=== PATIENT | male | born 1955 | race Caucasian/White ===

== ENCOUNTER 2019-06-23 07:48 | Inpatient (IN) ==
[2019-06-23] MEDS ORDERED: SOLU-MEDROL IV ONE (08:13)
[2019-06-23] MEDS ORDERED: DUONEB (A & A) INH ONE (08:14)
[2019-06-23] MEDS ORDERED: MAGNESIUM SULFATE 1 GM/D5W 1 GM/100 ML IVPB IV ONE (08:14)
[2019-06-23] MEDS ORDERED: ROCEPHIN 1 GM in NS 50 ML IV ONE (08:16)
[2019-06-23] MEDS ORDERED: NARCAN IV ONE (08:17)
[2019-06-23] MEDS ORDERED: SOLU-MEDROL ONE (08:19)
[2019-06-23] MEDS ORDERED: VERSED ONE (08:20)
[2019-06-23] MEDS ORDERED: NORCURON ONE (08:20)
--- NOTE | 2019-06-23 08:25 | PROVIDER DOCUMENTATION ---
HPI-Respiratory General - General Chief Complaint: Shortness of Breath Stated Complaint: COPD/unresponsive Time Seen by Provider: 06/23/19 08:13 Source: EMS (no family initially) Allergies/Adverse Reactions: Patient Allergies Allergy/AdvReac Type Severity Reaction Status Date / Time No Known Allergies Allergy Verified 06/23/19 11:31 Home Medications: Home Medication List Medication Instructions Recorded Confirmed Last Taken Type Albuterol Sulfate Inhaler 2 puff INH Q6H PRN PRN #1 inhaler 12/11/18 Unknown Rx [Ventolin Hfa] Amoxicillin/Pot Clavulanate 875 mg PO Q12HR #10 tab 12/11/18 Unknown Rx [Augmentin] Fluticasone/Salmet 250/50 INH 1 puff INH RTBID #1 inhaler 12/11/18 Unknown Rx [Advair 250/50 Diskus] Folic Acid 1 mg PO DAILY #120 tablet 12/11/18 Unknown Rx Prednisone [Deltasone] 20 mg PO DAILY #5 tab 12/11/18 Unknown Rx - History of Present Illness-Resp Nature of Presenting Problem: Patient is a 64 year old white male with severe COPD who presents by EMS with respirtory failure and oxygen sat in 70's and altered mentation. EMS reports fingerstick glucose >200. Shortly after arrival, chest tube placed over right chest to relief pneumothorax and endotracheal tube placed. Onset/Duration: reports: unsure Timing: reports: still present Review of Systems - Adult - REVIEW OF SYSTEMS - ADULT ROS:: unobtainable per condition (unresponsive) Constitutional: reports: see HPI Past History - Adult - PAST MEDICAL HISTORY-ADULT Review of Records: reports: Old Records Reviewed, Nursing Assessment Review, Medications Reviewed, Social history reviewed & non-contributory. Respiratory: reports: COPD Physical Exam-General - PHYSICAL EXAM-ADULT Exam Limited by: unresponsive Initial Vital Signs Reviewed: Yes - CONSTITUTIONAL General Appearance: other (unresponsive, lethargic) - EYES Eyes: other (clear) - HEAD, EARS, NOSE, MOUTH & THROAT HENMT: moist mucous membranes - NECK Neck: full range of motion, supple - RESPIRATORY Respiratory: other (decreased breath sounds right) - CARDIOVASCULAR Cardiovascular: regular rate, rhythm - GASTROINTESTINAL (ABDOMEN) Abdominal Exam: non tender, soft - MUSCULOSKELETAL Back Exam: normal inspection, no CVA tenderness Extremity: normal range of motion, non-tender - SKIN Integumentary: warm/dry - NEUROLOGIC Neurologic: grossly normal - HEART Score HEART Score: History: Slightly Suspicious HEART Score: ECG: Significant ST-Deviation HEART Score: Age: > or = 65 Years HEART Score: Risk Factors for Atherosclerotic Disease: 1 or 2 Risk Factors HEART Score: Troponin: < or = Normal Limit Total HEART Score:: 5 Progress - PLAN OF CARE/RESULTS Progress/Plan/Lab Results: Orders Category Date Time Status Admit - [facility] Routine AdmDCTranf 06/23/19 11:14 Active Cardiac Monitoring DIRECTED Care 06/23/19 08:14 Active FSBS/Accucheck Result Q6H Care 06/23/19 11:00 Active [place] Cath Insertion ORDERED Care 06/23/19 09:32 Active IV Insertion ORDERED Care 06/23/19 09:09 Completed Intake and Output-Strict ORDERED Care 06/23/19 09:32 Active NG/OG/Feeding Tube Insertion ORDERED Care 06/23/19 10:13 Active Notify MD of + Sepsis Screen NOW Care 06/23/19 09:09 Active Notify Physician As Ordered Care 06/23/19 09:09 Active Nursing- MD Consult Request ROUTINE Care 06/23/19 11:14 Active Oxygen Therapy- ED Nursing DIRECTED Care 06/23/19 08:14 Active Repeat Vital Signs .Blood Pressure Care 06/23/19 09:32 Active Repeat Vital Signs .Heart Rate Care 06/23/19 09:32 Active Repeat Vital Signs .Oxygen Saturation Care 06/23/19 09:32 Active Repeat Vital Signs .Respiratory Rate Care 06/23/19 09:32 Active Repeat Vital Signs .Temp Care 06/23/19 09:32 Active Saline Loc NOW Care 06/23/19 08:14 Active Physician/Provider Consults Routine Cons 06/23/19 11:14 Ordered Physician/Provider Consults Routine Cons 06/23/19 11:14 Ordered NPO Diet 06/23/19 11:14 Completed CHEST-PORTABLE [RAD] Stat Exams 06/23/19 08:14 Completed CHEST-PORTABLE [RAD] Stat Exams 06/23/19 09:[address] HEAD W/O CONTRAST [CT] Stat Exams 06/23/19 09:35 Completed ABG [RESP] Routine Lab 06/23/19 08:16 Completed ABG [RESP] Routine Lab 06/23/19 11:40 Completed BLOOD CULTURE [BLDCUL] Stat Lab 06/23/19 08:04 Results CBC WITH ELECTRONIC DIFF [HEME] Stat Lab 06/23/19 08:04 Completed CK PROFILE [SP CHEM] Stat Lab 06/23/19 08:04 Completed CK TOTAL [CHEM] Q8H Lab 06/23/19 12:41 Completed COMPREHENSIVE METABOLIC PANEL [CHEM] Stat Lab 06/23/19 08:04 Completed GRAM STAIN [BLDCUL] Stat Lab 06/23/19 08:04 Results LACTATE, PLASMA [CHEM] Stat Lab 06/23/19 08:04 Completed LACTATE, PLASMA [CHEM] Stat Lab 06/23/19 10:50 Completed PRO B-NATRIURETIC PEPTIDE Stat Lab 06/23/19 08:04 Completed PROTIME WITH INR [COAG] Stat Lab 06/23/19 08:04 Completed PTT [COAG] Stat Lab 06/23/19 08:04 Completed TROPONIN T Stat Lab 06/23/19 08:04 Completed URINE DRUG SCREEN Stat Lab 06/23/19 08:19 Completed 0.9% Sodium Chloride Inj [Ns] 1,000 ml Med 06/23/19 09:20 Discontinued .ROUTE As directed 0.9% Sodium Chloride Inj [Ns] 1,000 ml Med 06/23/19 11:15 Discontinued IV 125 mls/hr 0.9% Sodium Chloride Inj [Ns] 1,000 ml Med 06/23/19 09:32 Discontinued IV As Directed mls/hr 0.9% Sodium Chloride Inj [Ns] 100 ml Med 06/23/19 09:45 Discontinued Vasopressin [Pitressin] 40 unit IV As Directed mls/hr 0.9% Sodium Chloride Inj [Ns] 500 ml Med 06/23/19 09:32 Discontinued IV 999 mls/hr 0.9% Sodium Chloride Inj [Ns] 80 ml Med 06/23/19 09:45 Discontinued Fentanyl 1,000 microgm IV As Directed mls/hr Acetaminophen [Tylenol] Med 06/23/19 11:14 Discontinued 650 mg PO Q6H PRN PRN Albuterol 2.5MG/Ipratrop 0.5MG [Duoneb (A & A)] Med 06/23/19 08:14 Discontinued 3 ml INH NOW ONE Albuterol 2.5MG/Ipratrop 0.5MG [Duoneb (A & A)] Med 06/23/19 11:30 Discontinued 3 ml INH RTQ4H.WA Budesonide [Pulmicort] Med 06/23/19 19:30 Discontinued 0.5 mg INH RTBID CefTRIAXONE [Rocephin] 1 gm Med 06/23/19 08:16 Discontinued 0.9% Sodium Chloride Inj [Ns] 50 ml IV NOW Insulin Lispro [Humalog] Med 06/23/19 11:00 Discontinued See Protocol SUBQ 0700,1100,1600,2100 Ketamine Med 06/23/19 10:32 Discontinued 50 mg IV NOW ONE Ketamine Med 06/23/19 10:36 Discontinued 500 mg .ROUTE .STK-MED ONE Magnesium Sulfate 1 gm/D5w Med 06/23/19 08:14 Discontinued 1 gm in 100 ml IV NOW Methylprednisolone Sod Succ [Solu-Medrol] Med 06/23/19 08:19 Discontinued 125 mg .ROUTE .STK-MED ONE Methylprednisolone Sod Succ [Solu-Medrol] Med 06/23/19 08:13 Discontinued 125 mg IV NOW ONE Methylprednisolone Sod Succ [Solu-Medrol] Med 06/23/19 14:00 Discontinued 40 mg IV Q6H Midazolam [Versed] Med 06/23/19 08:20 Discontinued 5 mg .ROUTE .STK-MED ONE Midazolam [Versed] Med 06/23/19 08:28 Discontinued 5 mg IV NOW ONE Naloxone [Narcan] Med 06/23/19 08:17 Discontinued 1 mg IV NOW ONE Ondansetron [Zofran] Med 06/23/19 11:14 Discontinued 4 mg IV Q4H PRN PRN Propofol [Diprivan 1%] Med 06/23/19 10:45 Discontinued 1,000 mg in 100 ml IV As Directed mls/hr Vecuronium [Norcuron] Med 06/23/19 08:20 Discontinued 10 mg .ROUTE .STK-MED ONE Vecuronium [Norcuron] Med 06/23/19 08:27 Discontinued 7 mg IV NOW ONE Aerosol Treatments Routine Ot 06/23/19 08:14 Completed Aerosol Treatments Routine Ot 06/23/19 10:44 Completed Aerosol Treatments Routine Oth 06/23/19 11:17 Completed Aerosol Treatments Stat Ot 06/23/19 08:14 Completed Aerosol Treatments Stat Ot 06/23/19 10:44 Completed Aerosol Treatments Stat Ot 06/23/19 11:17 Completed CP/SOB/Palp >45 yrs of Age Stat Oth 06/23/19 08:13 Ordered Oxygen Device Stat Oth 06/23/19 09:09 Completed EKG [EKG] Stat Ther 06/23/19 08:14 Draft Transfer/Admit Order [TRANSFER] Routine Transfer 06/23/19 11:08 Ordered Result Diagrams: 06/23/19 08:04 06/23/19 08:04 - REASSESSMENT Reassessment #1 Time Reassessed: 12:31 Status: worsening (15 MIN AGO NOTICED TO HAVE ST CHANGES ON C MONITOR, EKG DISPLAYS INFER ST ELEV AMI. PT 95/ NOT ON PRESSOR, Cr 0.7. PT ACCEPTED IN TRANS TROY TO ICU AT [facility] BY PROGRAM ADVOCATE DR SABILLON. [facility].) - EKG 3 Time of EKG reading by physician:: 12:15 EKG Read and Signed by:: Juan Earl EKG Interpretation (*Must complete 3 of following elements*): Abnormal Rate: 90 Rhythm: NSR ST Wave: elevated (INFERIOR ST ELEVATION, NEW TO PRIOR TRACINGS.) - CONSULTS/PCP/HOSPITALIST Notification #1 *Consult/PCP/Hospitalist*: Dr. Vega Time Discussed: 09:25 Consult Disposition: Will see in ED #3 Consult: DR SABILLON , CARDIOLOGY AT [facility] ACCEPTS IN TRANSFER TO ICU [facility] Time Discussed: 12:33 (HEPARIBN BOLUS AND GRIPP RECOMMENDED BY DR SABILLON EVEN W/ CHEST TUBE) - CHANGE OF SHIFT REPORT (ED Provider) 1 Report Given and Care Transferred to:: Dr. Samara Earl Time of Transfer: 09:30 Items Pending: Labs, Physician Consult/Arrival Procedures - CHEST TUBE Right Mid-Axillary Chest Time-Out Verification Completed?: Yes Size of Kiswahili Tube (cm): 24 Site Prepped: Betadine, Sterile Drapes Applied Anesthetic: 1%, Lidocaine/Xylocaine Volume of Anesthesia (ml's): 4 Moya of Air Russell: Yes Number of Attempts: 1 Connected to Wall Suction?: Yes Tube Drainage: see nurses notes Tube Sutured to Skin: Yes Placement Verified by XRAY?: Yes - INTUBATION Time of Intubation: 21:00 Intubation Method: orotracheal Equipment: ETT, Bougie Tube Size (cm): 7.5 Pretreated with 100% Oxygen?: Yes Breath Sounds after Intubation: equal ETT Primary Tube Confirmation: Capnometry CO2 Change, Direct Visualization, Chest Rise and Fall Departure - Departure Date of Disposition Decision: 06/23/19 Time of Disposition Decision: 13:17 DIAGNOSIS: Pneumothorax, right, Hypercarbia Chronic obstructive pulmonary disease Qualifiers: COPD type: emphysema Emphysema type: unspecified Qualified Code(s): J43.9 - Emphysema, unspecified Respiratory failure Qualifiers: Chronicity: acute Respiratory failure complication: hypoxia Qualified Code(s): J96.01 - Acute respiratory failure with hypoxia STEMI (ST elevation myocardial infarction) Qualifiers: Involved coronary artery: unspecified coronary artery Qualified Code(s): I21.3 - ST elevation (STEMI) myocardial infarction of unspecified site Disposition: [facility] 02 Certified Medical Emergency: Emergent Condition: Critical - Critical Care Note This patient required my direct & personal management of CC.: Yes Total Time (mins): 30 Critical Care Statement: This patient required my direct personal management to treat or rule out processes, the absence of which, could potentiallly result in sudden, clinically significant life or limb threatening deterioration. Attestation - Physician/ KELLY Attestation Patient care was provided by Advanced Practice Provider:: No The physician spent face to face time with patient:: Yes Advanced Practice Provider documentation review:: Supervising physician onsite and consulted in the evaluation and care of this patient. The physician did have a face to face encounter with the patient.
--- NOTE | 2019-06-23 08:25 | EKG Report ---
Test Performed on : 06/23/2019 08:05:37 AM Test Reason : unresponsive Blood Pressure : / mmHG Vent. Rate : 085 BPM Atrial Rate : 085 BPM P-R Int : 164 ms QRS Dur : 064 ms QT Int : 332 ms P-R-T Axes : 088 086 087 degrees QTc Int : 395 ms Normal sinus rhythm. Right atrial enlargement Septal infarct , age undetermined Abnormal ECG No previous ECGs available Unconfirmed Result
[2019-06-23 08:26] LABS: ALLEN TEST YES; BLOOD TYPE ARTERIAL; O2(CT) 16.6 mL/dL (15.0-23.0); O2HB 91.5 % (95.0-99.0); PO2(98.6) 77 mmHg (60-100); SAMPLE BLOOD; THB 12.9 g/dL (11.5-17.4)
[2019-06-23 08:27] LABS: MODALITY AMBU BAG; PCO2(98.6) > 150 mmHg (35-45); pH(98.6) 7.09 (7.35-7.45)
[2019-06-23] MEDS ORDERED: NORCURON IV ONE (08:27)
[2019-06-23] MEDS ORDERED: VERSED IV ONE (08:28)
--- NOTE | 2019-06-23 08:32 | Diag Imaging Result Doc PS360 ---
EXAM: CHEST-PORTABLE 06/23/2019 HISTORY: sob TECHNIQUE: AP portable at 0822 COMMENT: There is a large right pneumothorax. Due to apparent pleural fibrosis at the apex this is mostly present over the lateral and inferior portion of the right hemithorax. There is apparent COPD. The heart size and primary vascularity are within normal limits. IMPRESSION: Large right pneumothorax. COPD. The findings were discussed with Kal Burciaga MD at 06/23/2019 8:30 AM. Electronically signed by Phuc Flores 06/23/2019 8:30 AM
[2019-06-23 08:33] LABS: INR 0.88; PTT 22.1 Seconds (22.3-41.8)
[2019-06-23 08:37] LABS: BASO# 0.04 X1000 (0.0-0.2); BASO% 0.7 % (0.0-0.8); EOS# 0.12 X1000 (0.0-0.7); EOS% 2.1 % (0.0-10.0); HEMATOCRIT 43.3 % (42.0-52.0); HEMOGLOBIN 12.7 g/dL (14.0-18.0); LYMPH# 1.91 X1000 (1.2-3.4); LYMPH% 33.5 % (20.5-51.1); MCH 31.8 PG (27-31); MCHC 29.3 g/dL (33-37); MCV 108.5 FL (81-99); MONO# 0.25 X1000 (0.11-0.59); MONO% 4.4 % (1.7-9.3); MPV 10.9 FL (7.4-10.4); NEUT# 3.38 X1000 (1.4-6.5); NEUT% 59.3 % (42.2-75.2); PLT 223 X1000 (130-400); RBC 3.99 XMIL (4.7-6.1); RDW 12.3 % (11.5-14.5)
[2019-06-23 08:55] LABS: AGAP 18; ALB/GLOB RATIO 2.2; ALKALINE PHOSPHATASE 78 U/L (32-122); BUN 24 mg/dL (8-22); CALCIUM 10.2 mg/dL (8.8-10.2); CHLORIDE 87 mmol/L (98-107); CK PROFILE 49 U/L (24-204); COSMO 299; CREATININE 0.7 mg/dL (0.7-1.2); GLUCOSE 245 mg/dL (70-104); GOT 118 U/L (10-34); GPT 76 U/L (10-44); POTASSIUM 4.5 mmol/L (3.5-5.1); SODIUM 144 mmol/L (136-145); TCO2 39 mmol/L (25-35); TOTAL BILIRUBIN 0.66 mg/dL (0.20-1.00); TOTAL PROTEIN 7.3 g/dL (6.3-8.3)
[2019-06-23 09:11] LABS: UR AMPHETAMINES QUAL NONE DETECTED (NONE DETECT); UR BARBITUATES QUAL NONE DETECTED (NONE DETECT); UR BENZODIAZEPIN QUAL NONE DETECTED (NONE DETECT); UR CANNABINOIDS QUAL PRESUMPTIVE POSITIVE (NONE DETECT); UR COCAINE QUAL NONE DETECTED (NONE DETECT); UR METHADONE QUAL NONE DETECTED (NONE DETECT); UR OPIATES QUAL NONE DETECTED (NONE DETECT); UR OXYCODONE QUAL NONE DETECTED (NONE DETECT); UR PCP QUAL NONE DETECTED (NONE DETECT)
[2019-06-23] MEDS ORDERED: NS 1,000 ML ONE (09:20)
[2019-06-23] MEDS ORDERED: NS 500 ML IV ONE (09:32)
[2019-06-23] MEDS ORDERED: NS 1,000 ML IV ONE (09:32)
[2019-06-23] MEDS ORDERED: PITRESSIN 40 UNIT in NS 100 ML IV SCH (09:45)
[2019-06-23] MEDS ORDERED: FENTANYL 1,000 MICROGM in NS 80 ML IV SCH (09:45)
--- NOTE | 2019-06-23 09:45 | Diag Imaging Result Doc PS360 ---
EXAM: CHEST-PORTABLE 06/23/2019 HISTORY: Chest tube placement TECHNIQUE: AP portable at 0911 COMMENT: There is a chest tube on the right. The pneumothorax on the right has been evacuated. There is an endotracheal tube slightly below the thoracic inlet. Both lungs are more hyperinflated than they were. IMPRESSION: Worsened hyperinflation. Resolution of right pneumothorax following chest tube placement. Electronically signed by Phuc Flores 06/23/2019 9:42 AM
--- NOTE | 2019-06-23 10:23 | Diag Imaging Result Doc PS360 ---
CT HEAD W/O CONTRAST - 06/23/2019 INDICATION: DIALATED PUPIL, AMS COMPARISON: 05/01/2019 FINDINGS: The ventricles and sulci are normal in size and contour. No intracranial mass or hemorrhage. The skull is intact. The sinuses mastoids and middle ears are clear. IMPRESSION: Negative exam. This exam was performed using automated exposure control, adjustment of mA or kV according to patient size, and/or use of iterative reconstruction technique Electronically signed by Jacob Augustine 06/23/2019 10:20 AM
[2019-06-23] MEDS ORDERED: KETAMINE IV ONE (10:32)
[2019-06-23] MEDS ORDERED: KETAMINE ONE (10:36)
[2019-06-23] MEDS ORDERED: DIPRIVAN 1% 1,000 MG/100 ML BOTTLE IV SCH (10:45)
[2019-06-23] MEDS ORDERED: HUMALOG SUBQ SCH (11:00)
[2019-06-23] MEDS ORDERED: ZOFRAN IV PRN (11:14)
[2019-06-23] MEDS ORDERED: TYLENOL PO PRN (11:14)
[2019-06-23] MEDS ORDERED: NS 1,000 ML IV SCH (11:15)
[2019-06-23] MEDS ORDERED: DUONEB (A & A) INH SCH (11:30)
[2019-06-23] MEDS ORDERED: VANCOMYCIN IV PER PHARMACY MISC SCH (11:30)
[2019-06-23] MEDS ORDERED: ZOSYN 3.375 GM in NS 50 ML IV SCH (11:30)
[2019-06-23 11:47] LABS: ALLEN TEST YES; BE 11.9 mmoll (-3.0-3.0); BLOOD TYPE ARTERIAL; HCO3-(ACT) 34.2 mmoll (20.0-26.0); METHB 1.6 % (0.0-1.5); O2(CT) 16.6 mL/dL (15.0-23.0); O2HB 97.2 % (95.0-99.0); PO2(98.6) 307 mmHg (60-100); SAMPLE BLOOD; SAO2 100.3 % (95.0-100.0); SRATE 16 BPM; THB 11.6 g/dL (11.5-17.4); TVOL 350 mL
[2019-06-23 11:48] LABS: pH(98.6) 7.13 (7.35-7.45)
[2019-06-23 11:49] LABS: MODALITY VENTILATOR; PCO2(98.6) 137 mmHg (35-45)
[2019-06-23] MEDS ORDERED: ASPIRIN NG ONE (12:20)
[2019-06-23] MEDS ORDERED: VANCOMYCIN 1,350 MG in NS 250 ML IV ONE (12:30)
[2019-06-23] MEDS ORDERED: HEPARIN IV ONE (12:36)
[2019-06-23] MEDS ORDERED: ASPIRIN PR ONE (13:00)
[2019-06-23] MEDS ORDERED: ASPIRIN EC ONE (13:01)
[2019-06-23] MEDS ORDERED: ASPIRIN ONE (13:02)
--- NOTE | 2019-06-23 13:06 | HISTORY AND PHYSICAL ---
ADDENDUM: This is an addendum to the history and physical dictated by nurse practitioner. I agree with most components of history, physical, assessment and plan. In brief, Mr. Hernandez is a 64- year-old man with past medical history of end-stage COPD, chronic hypoxic hypercapnic respiratory failure on home trilogy. Recent admission in December of 2018 for acute exacerbation of hypercarbic respiratory failure who was brought into the hospital by his brother as the patient was found to have acute mental status changes, and worsening hypoxia. In the emergency room, he was found to be poorly responding and so endotracheal intubation was performed. He was also found to have pneumothorax affecting right chest so a chest tube was placed by the emergency room physician. Hospitalist team was consulted for further management. The patient is currently intubated on a fentanyl drip, and not responding. Currently, temperature 98.2 degrees, pulse 93, respiratory rate 18, and blood pressure is 90/70. He is on mechanical ventilator 100%. ABG is requested. PHYSICAL EXAMINATION: He has endotracheal tube. He has urine catheter. He has a right-sided chest tube. His left pupil is larger than right. He has significantly diminished air entry because of end-stage COPD. CARDIOVASCULAR: S1, S2 normal. No murmur or gallop. ABDOMEN: Firm. I could not appreciate bowel sounds. EXTREMITIES: No lower extremity edema. LABORATORY: Labs suggestive of acute hypercarbic respiratory failure with pCO2 more than 150. He was noncompliant with his trilogy machine. IMAGING: Head CT was unremarkable. Chest x-ray initially had right-sided pneumothorax. EKG had a normal sinus rhythm. ASSESSMENT AND PLAN: 1. Acute encephalopathy and acute hypercarbic respiratory failure. 2. Chronic hypoxic hypercarbic respiratory failure. 3. End-stage COPD, profound cachexia related to it, bed-bound status because of it. 4. Shock in the setting of acute hypermetabolic derangement and acute hypercarbic respiratory failure. PLAN: Intubation and mechanical ventilation and chest tube management. Continue intravenous fluids, intravenous antibiotic until the blood culture comes back. Intravenous pressors to maintain MAP more than 65 mmHg. The patient's prognosis is extremely poor. I will consult palliative care team as well. I had a discussion about his code status with his brother, and he states that the patient would not want any chest compression or shock if his heart would stop. TIME SPENT: More than 30 minutes of critical care time was spent in taking care of this patient. cc: Bro Seaman MD
[2019-06-23 13:24] VITALS: BP 135/75
[2019-06-23] MEDS ORDERED: SOLU-MEDROL IV SCH (14:00)
--- NOTE | 2019-06-23 14:25 | EKG Report ---
Test Performed on : 06/23/2019 12:12:13 PM Test Reason : ED. NO EKG ORDER FOR MUSE Blood Pressure : / mmHG Vent. Rate : 092 BPM Atrial Rate : 092 BPM P-R Int : 090 ms QRS Dur : 084 ms QT Int : 332 ms P-R-T Axes : 032 083 086 degrees QTc Int : 410 ms Sinus rhythm. with short CA ST elevation, consider inferior injury or acute infarct ACUTE AR / STEMI Abnormal ECG When compared with ECG of 02-DEC-2018 18:19, CA interval has decreased ST elevation now present in Inferior leads ST elevation now present in Anterior leads Unconfirmed Result
--- NOTE | 2019-06-23 14:38 | PROGRESS NOTE ---
DATE: 06/23/2019 ADDENDUM: I was informed by the nursing team that the patient on the monitor had started developing ST elevation so a stat EKG was performed which had detected inferior STEMI so I was informed. I immediately evaluated the patient at bedside. On the EKG, he does have more than [address]-segment elevation in lead 2, 3, AVF as well as T-wave inversions in lead aVL. I discussed with the nursing team about giving him stat aspirin, and starting him on heparin drip which has already been ordered by emergency room. The emergency room physician contacted [facility]. The patient would be airlifted to the hospital. I went to bedside, and discussed this with the patient's brother at bedside. His questions were answered. cc: Bro Seaman MD
--- NOTE | 2019-06-23 14:40 | HISTORY AND PHYSICAL ---
PRIMARY CARE PROVIDER: Dr. Jacob Montes. CHIEF COMPLAINT: Unresponsive when he came. HISTORY OF PRESENT ILLNESS: Mr. Manuelito Hernandez is a 64-year-old male with a medical history of end-stage COPD on 5 L of oxygen at home (he is supposed to be using Trilogy, but his brother at the bedside says he does not use it), untreated diabetes mellitus type 2, untreated hypertension, marijuana dependence, hyperlipidemia. According to his brother, he has been in his usual state of health, which is not very well, but this morning around 7:30, the patient slumped over right in front of his brother. He called an ambulance, and he was brought here, where he was found to have a 30% pneumothorax on his right chest. There was a 24-Slovak right pleural chest tube placed. The patient was externally hypercarbic and acidotic, and was intubated immediately. He was very acidotic, and was started on IV fluids and antibiotics. Sedation initiated as well. He was found to have unequal pupils. Had a head CT that was negative. EKG revealed that he was actually having a ST-elevated myocardial infarction. Although, there are negative cardiac enzymes x2, there were ST elevations in multiple leads, but was not on the first EKG. Second EKG is not uploaded. Plan is now to have him transferred to [facility] for further care. PAST MEDICAL HISTORY: Obtained from old records. 1. Severe end-stage COPD, on 5 L of oxygen at home, and per the brother, was supposed to be on Trilogy as well, although he refused to wear it. 2. Untreated diabetes mellitus. 3. Untreated hypertension. 4. Marijuana dependence. 5. Hyperlipidemia. PAST SURGICAL HISTORY: Oral surgery in the past. SOCIAL HISTORY: Lives with his brother. Not . No children. Quit smoking cigarettes several years ago, but still smokes marijuana and cigars. No illicit drug use. No alcohol use. FAMILY HISTORY: Colon cancer and diabetes. ALLERGIES: No known drug allergies. MEDICATIONS: Home medications not reconciled. REVIEW OF SYSTEMS: Unable to obtain. PHYSICAL EXAMINATION: VITAL SIGNS: Temperature 98.8 degrees, heart rate 86, respiratory rate 18, blood pressure 135/75, on mechanical ventilation, 100% saturation. GENERAL: Mr. Manuelito Hernandez is a 64-year-old male, very ill-appearing and cachectic. He is intubated and sedated. Unable to answer any questions. HEENT: Atraumatic, normocephalic. Pupils are unequal, right is greater than the left. Mucous membranes are dry. NECK: Trachea midline. CARDIOVASCULAR: S1, S2. Regular rate and rhythm. No rubs, gallops, murmurs. No lower extremity edema. There are +2 dorsalis and radial pulses. Negative for JVD or carotid bruit. PULMONARY: Decreased on the right with a right pleural chest tube. No obvious air leak at this time. Positive breath sounds x4 locations, and he has an oral endotracheal tube, on mechanical ventilation. EXTREMITIES: Currently, he is attempting to pull the endotracheal tube and move all legs. NEUROLOGIC: Unable to fully assess. He moves all extremities equally. His pupils are unequal. SKIN: Warm, dry, intact. LABORATORY DATA: White blood cells 5000, hemoglobin 12, hematocrit 43, platelet count 223. INR 0.88, PTT is 22.1. ABGs on mechanical ventilation: PH 7.13, pCO2 of 137, PO2 of 307, bicarb 34, base excess 11, saturation 97%. Lactate 9.2, and that is up from 4.8. Sodium 144, potassium 4.5, BUN 24, creatinine 0.7, glucose 245, calcium 10. Bilirubin 0.66, AST 118, ALT 76. CK 49, troponins less than 0.01 x2. Albumin 5.0. Serum lactate 5.6, and then up to 7.1. Urine drug screen positive for cannabinoids. IMAGING: Chest x-ray: Large right pneumothorax with COPD. After x-ray, worsened hyperinflation, but the resolution of the right pneumothorax with the chest tube in place. Head CT: Negative exam. Second EKG is not available. First EKG: No ST changes. Sinus rhythm with a ventricular rate of 85, QTc is 395. ASSESSMENT AND PLAN: 1. Acute hypercarbic hypoxemic respiratory failure secondary to large right pneumothorax. Mechanically ventilated. Right pleural chest tube placed. Will consult General Surgery for chest tube management, and Pulmonary for mechanical ventilation management and lung disease management. 2. Advanced chronic obstructive pulmonary disease. Nebulizers, steroids, and a consult for Pulmonary. 3. Second electrocardiogram showed ST-elevation myocardial infarction, but cardiac enzymes are negative. Cardiology will be consulted if the patient stays, but it sounds like the patient is going to go to [facility] secondary to myocardial infarction. 4. Untreated diabetes mellitus type 2. Will do blood glucoses, sliding scale insulin. 5. Hypertension. Noted. 6. Marijuana abuse. 7. Metabolic encephalopathy, but could be some anoxic injury that we have unequal pupils, but the head CT was negative, and he has purposeful movements of the upper extremities, attempting to pull out the tubes. Dictated by TOMEKA Cope for Bro Seaman MD cc: TOMEKA Cope MD I agree with most components of history, physical, assessment and plan. A separate addendum has been dictated. MTDMarvin
[2019-06-23] MEDS ORDERED: PULMICORT INH SCH (19:30)
[2019-06-24] MEDS ORDERED: VANCOMYCIN 1,250 MG in NS 250 ML IV SCH (13:00)
--- NOTE | 2019-06-28 15:34 | DISCHARGE SUMMARY ---
ADMISSION DATE: 06/23/2019 DISCHARGE DATE: 06/23/2019 DISCHARGE DISPOSITION: To [facility]. REASON FOR DISCHARGE: STEMI. DISCHARGE CONDITION: Patient is intubated. He has been given aspirin through nasogastric tube. Intravenous heparin drip has been ordered however it has not been started yet and transport is at bedside. DISCHARGE DIAGNOSIS: 1. Acute encephalopathy. 2. Acute hypercarbic respiratory failure. 3. Chronic hypoxic hypercarbic respiratory failure. 4. End-stage chronic obstructive pulmonary disease. 5. Shock in the setting of acute metabolic derangement. 6. ST segment elevation myocardial infarction. elevation myocardial infarction . DISCHARGE MEDICATIONS: 1. Intravenous fluids . 2. Intravenous antibiotics. 3. Intravenous pressors norepinephrine. 4. Intravenous fentanyl drip. BRIEF DISCHARGE SUMMARY: Mr. Hernandez is 64 years old man with past medical history of end- stage COPD who lives with his brother and has chronic hypoxic respiratory failure who was brought in because of acute mental status changes and worsening hypoxia. In the emergency room he was found to be responding poorly. An endotracheal intubation was performed. He was also found to have spontaneous pneumothorax affecting right side so chest tube was placed by emergency room physician. Hospitalist team was consulted further management. He was started on intravenous antibiotics and intravenous pressors and he was mechanically ventilated. While on the ventilator the bedside telecommunicator supervisor was detected to have ST elevation and stat EKG was performed which had ST elevation inferior leads and ST depression in aVL so immediately [facility] was notified and patient was to be airlifted to [facility]. TIME SPENT: Less than 30 minutes. cc: Bro Seaman MD
== END 2019-06-23 15:07 | disposition short-term general hospital (02) | DRG 280 ==
LOC: SUPCPDRO → ED 07:48 → ICU 11:21
PROVIDERS: ATTEND Internal Medicine